=== PATIENT | female | born 1975 | race Caucasian/White ===

== ENCOUNTER 2021-08-30 08:51 | Outpatient (CLI) | payer BC, SELFPAY ==
--- NOTE | ~2021-08-30 | MR_ITS ---
EXAMINATION: MR knee RT wo con DATE: 08/30/2021 09:53 INDICATION: Chronic right knee pain TECHNIQUE: Magnetic resonance imaging (MRI) of the right knee was performed without intravenous contr ast. Sequences included coronal PD-weighted FSE, coronal PD-weighted FS FSE, sagittal T2-weighted FS E, sagittal PD-weighted FS FSE and axial PD weighted fat saturated FSE. COMPARISON: None. FINDINGS: Medial compartment: Medial meniscus is normal. Articular cartilage is normal. Lateral compartment: Lateral meniscus is normal. Articular cartilage is normal. Patellofemoral compartment: Deep chondral fissuring at the medial and lateral patellar facets and intervening apical ridge, in pl aces with fibrillated crab meat like appearance. Small focus of underlying subarticular edema at the inferolateral aspect of the lateral facet. Trochlear cartilage is normal. Ligaments and tendons: Anterior and posterior cruciate ligaments are normal. The medial collateral ligament and fibular isra ateral ligament complex are normal. The extensor mechanism is normal. The visualized medial and later al hamstring tendons are normal. Mild tendinopathy without discrete tear at the distal iliotibial ban d with focal marrow edema underlying its attachment at Gerdy tubercle. Fluid: Normal knee joint effusion. No loose osteochondral bodies identified. Osseous/other: Bone alignment is normal. No fracture or pathologic marrow replacing process. There is mild edema in the deep suprapatellar fat pad which can be seen with fat pad impingement syndrome. IMPRESSION: 1. 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 2. Mild tendinopathy of the distal iliotibial band with prominent underlying marrow edema at Gerdy tu bercle. 2. Mild edema in the deep suprapatellar fat pad which can be seen with fat pad impingement syndrome. Reviewed, dictated and finalized at location A. IMPRESSION: 1. 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 2. Mild tendinopathy of the distal iliotibial band with prominent underlying ma rrow edema at Gerdy tubercle. 2. Mild edema in the deep suprapatellar fat pad which can be seen with fat pad impingement syndrome.
== END 2021-08-30 08:52 | disposition home or self-care (01) ==
PROVIDERS: Visit Provider Orthopaedic Surgery
DX: M25.561 Pain in right knee (principal); G89.29 Other chronic pain
CPT/HCPCS: 73721